=== PATIENT | male | born 1990 | race Caucasian/White ===

== ENCOUNTER 2019-02-18 22:17 | Emergency (ER) | payer OTHER ==
[~2019-02-18] VITALS: Ht 177.8 cm; Wt 86.2 kg
[2019-02-18 22:22] VITALS: BP_SYST 101
--- NOTE | 2019-02-18 22:22 | NUR ---
Patient triaged and placed in waiting room. VSS and patient appears in no acute distress at this time. Accompanied by FAM MEMBER, awaiting available bed, and MD notified of need for MSE.
--- NOTE | 2019-02-19 00:56 | NUR ---
Patient to ER bed 1 to gown for evaluation. Side rails up. Report given to Deborah MARION.
--- NOTE | 2019-02-19 01:12 | NUR ---
Patient arrived via POV with significant other accompanying. Patient states he was skateboarding downhill and had to jump off, he attempted to run and fell, striking his his left shoulder. Patient states pain is 6-8/10. Patient has +2 pulses to radial. Patient calm and cooperative. Will continue to follow up and monitor.
[2019-02-19] MEDS ORDERED: MORPHINE SULFATE 10 MG/ML VIAL IM ONE (01:30)
--- NOTE | 2019-02-19 01:30 | NUR ---
ER at bedside examining patient.
[2019-02-19 02:40] VITALS: BP_SYST 103
--- NOTE | 2019-02-19 02:40 | NUR ---
Patient given written and verbal discharge instructions and verbalizes understanding. ER MD discussed with patient the results and treatment provided. Patient in stable condition. ID arm band removed. Rx of Flexeril and Naprosyn given. Patient educated on pain management and to follow up with PMD. Pain Scale 6/10. Opportunity for questions provided and answered. Medication side effect fact sheet provided.
== END 2019-02-19 02:40 | disposition home or self-care (01) ==
LOC: SED 22:17
DX: S43.102A Unspecified dislocation of left acromioclavicular joint, initial encounter (principal); V00.131A Fall from skateboard, initial encounter; Y93.51 Activity, roller skating (inline) and skateboarding; Y92.89 Other specified places as the place of occurrence of the external cause; Y99.8 Other external cause status
CPT/HCPCS: 73030; 96372; 99283; J2270